=== PATIENT | male | born 2000 | race African-American/Black ===

== ENCOUNTER 2023-01-01 13:11 | Emergency (ER) | payer OTHER ==
[~2023-01-01] VITALS: Ht 203.2 cm; Wt 105.0 kg
[2023-01-01 13:28] VITALS: BP 120/81; PULSE 94; RESP 18; O2SAT 97
[2023-01-01] MEDS ORDERED: IBUPROFEN 800 MG TAB PO ONE (14:30)
== END 2023-01-01 17:54 | disposition home or self-care (01) ==
LOC: ER 13:11
DX: M25.571 Pain in right ankle and joints of right foot (principal); M25.471 Effusion, right ankle; Z53.21 Procedure and treatment not carried out due to patient leaving prior to being seen by health care provider
CPT/HCPCS: 73610